=== PATIENT | female | born 1935 ===

== ENCOUNTER → 2017-08-15 | Outpatient (CLI) | payer BC ==
[~2017-08-15] MED LIST: ASPI400T11 PO; CALCTAB5 PO; MULTTAB5 PO; SODI2SOL OPL
== END | disposition home or self-care (01) ==
LOC: C.LABSPEC 11:07
PROVIDERS: ATTEND Ophthalmology
DX: H16.042 Marginal corneal ulcer, left eye (principal)

== ENCOUNTER → 2017-09-30 | Day surgery (SDC) | payer BC ==
[2017-09-09 14:49] VITALS: Ht 152.4 cm; Wt 58.6 kg
[~2017-09-30] VITALS: Ht 152.4 cm; Wt 58.6 kg
[~2017-09-30] MED LIST changes: +ACETAMINOPHEN 325 MG TAB PO PRN; -ASPI400T11 PO; +ATROPINE SULFATE 0.1 MG/ML 5ML SYR IV PRN; +ATROPINE SULFATE 1% OP SOLN 2 ML BTL ONE; +AcetylCHOLine CHL OP SOL 1:100 2 ML BTL ONE; +BRIMONIDINE TART 0.2% OP SOLN PER DROP CHARGE ONE; +BSS 500ML IRRIG ONE; +BSS FLUSH ONE; -CALCTAB5 PO; +CALCTAB7 PO; +EpHEDrine SULFATE INJ 50 MG/ML AMP IV PRN; +EpINEphrine INJ 1MG/ML AMP 1 MG/ML AMP ONE; +HEALON 10MG/ML 0.85 ML SYR INSTIL ONE; +IBUPROFEN 200 MG TAB ONE; +LACTATED RINGER'S 1000ML 1,000 ML IV SCH; +LIDOCAINE 3.5% OPH GEL PER APPLICATION CHARGE OPL SCH; +LIDOCAINE 4% OP SOLN DROP CHARGE ONE; +LIDOCAINE HCL 1% MPF 2 ML VIAL ONE; +MIDAZOLAM HCL 1 MG/ML 2ML VIAL ONE; +MOXIFLOXACIN OPH SOLN PER DROP CHARGE ONE; +MULT-190 PO; +NURSING VERBAL MED ORDER ONE; +POVIDONE-IODINE OP SOLN 30 ML BTL ONE; +PRED1SUS3 OPL; +PROPARACAINE 0.5% OP SOLN PER DROP CHARGE OPL SCH; +TETRACAINE HCL (OPHTH) 60 DROPS/4 ML BTL OP ONE; +TOBRAMYCIN/DEXAMETHASONE OPH OINT PER APPLN CHARGE ONE; +VNTHFA/IN INH
--- NOTE | 2017-09-30 07:35 | History & Physical Bridge - [place] ---
H&P Re-Evaluation Bridge Note: I have examined the patient, reviewed the History & Physical and in the interval since the performance of the History & Physical I have noted the following changes of clinical significance: No changes noted
[2017-09-30] MEDS: MOXIFLOXACIN OPH SOLN PER DROP CHARGE OPL SCH ×3 (07:41→08:02)
[2017-09-30] MEDS: LIDOCAINE 4% OP SOLN DROP CHARGE OPL SCH ×2 (07:42→08:03)
--- NOTE | 2017-09-30 09:35 | [facility] Post Operative Brief Note ---
Immediate Operative Summary Operative Date Sep 30, 2017. Pre-Operative Diagnosis Left Eye Corneal Transplant Rejection Post-Operative Diagnosis Same Procedure(s) Performed Left Eye Descements Stripping Automated Endothelial Keratoplasty Surgeon Dr. Domingo Boone [employer] Detective Surgeon(s) None Estimated Blood Loss 0 Findings Consistent with Post-Op Diagnosis Fluids (cc crystalloids) see anesthesia record Specimens None Drains None Anesthesia Type MAC Complication(s) none Disposition Accompanied Pt To Recover: no Disposition: Recovery Room / PACU
[2017-09-30 09:36] VITALS: TEMP 36.4
--- NOTE | 2017-09-30 09:37 | Discharge Instructions-[facility]urgCtr ---
Discharge Instructions Date of Service Sep 30, 2017. Visit Reason for Visit: Left Eye Corneal Transplant Rejection Discharge Discharge Diagnosis / Problem: fialed DSAEK graft OS post rejection Discharge Goals Goal(s): Improve function Activity Recommendations Activity Limitations: per Instructions/Follow-up section Lifting Limitations: no more than 5 pounds Anesthesia . Post Anesthesia Instructions: If you have had General Anesthesia or IV Sedation: * Do not drive today. * Resume driving when surgeon permits. * Do not make important decisions or sign legal documents today. * Call surgeon for: 1. Temperature elevations greater than 101 degrees F. 2. Uncontrollable pain. 3. Excessive bleeding. 4. Persistent nausea and vomiting. 5. Medication intolerance (nausea, vomiting or rash). * For nausea and vomiting use only clear liquids such as: tea, soda, bouillon until nausea subsides, then gradually increase diet as tolerated. * If you have any concerns or questions, call your surgeon's office. If physician is unavailable and it is an emergency, call 911 or go to the nearest emergency room. . Instructions / Follow-Up Instructions / Follow-Up ACTIVITY RECOMMENDATIONS: * Bedrest: Eyes to the adalgisa. MEDICATIONS: Resume previous medications unless instructed otherwise by your surgeon. Eye drops (today and tomorrow): Gatifloxacin - one drop in operative eye every 2 hours while awake Prednisolone 1% - one drop in operative eye every 2 hours while awake SPECIAL CARE INSTRUCTIONS: * If any problems or concerns, please call Dr. Boone's office at . * Keep plastic shield taped over eye to sleep at night. * Keep plastic shield taped over eye except to administer eye drops. * Keep plastic shield on until office visit the following day. FOLLOW UP VISIT: Follow-up with Dr. Boone in the [place] office as scheduled. If not already scheduled, please call the office at . Diet Recommendations Home Diet: resume previous diet Procedures Procedures Performed: Left Eye Descements Stripping Automated Endothelial Keratoplasty Pending Studies Studies pending at discharge: yes List of pending studies: donor corneal rim culture Medical Emergencies . Who to Call and When: Medical Emergencies: If at any time you feel your situation is an emergency, please call 911 immediately. . Non-Emergent Contact Non-Emergency issues call your: Third Officer . . "Provider Documentation" section prepared by Mathieu Boone. .
--- NOTE | 2017-09-30 10:30 | OPERATIVE REPORT ---
DATE OF OPERATION: 09/30/2017 PREOPERATIVE DIAGNOSIS: Failed corneal graft left eye post-rejection. POSTOPERATIVE DIAGNOSIS: Same. PROCEDURE PERFORMED: Descemet stripping automated endothelial keratoplasty, left eye. COMPLICATIONS: None. ESTIMATED BLOOD LOSS: None. ANESTHESIA: Local with sedation. DESCRIPTION OF PROCEDURE: After informed consent was obtained in the holding area, attention was first turned to the donor cornea. It was placed endothelial side up on a Allison trephine and trephinated by myself using an 8.25 mm Allison trephine blade. It was then covered in Optisol and set aside. The patient was then brought back to the operating room where cardiac monitoring leads and oxygen by nasal cannula was administered by anesthesia. Gentle IV sedation was given, and the patient's left eye was prepped and draped in usual sterile fashion. Wire lid speculum was placed in the left eye and the operating microscope was swung into position. Using 0.12 forceps and a supersharp blade, a paracentesis port was made at the 5 o'clock position of the patient's left eye. 1% nonpreserved lidocaine was injected into the anterior chamber for anesthesia. A 2.2 mm keratome blade was then used to cut the suture present at the 3 o'clock position of the patient's left eye and the suture was removed using a tying forcep. The anterior chamber of the eye was then entered with a 2.2 mm keratome blade in a shelved fashion at the 3 o'clock position of the patient's left eye. The anterior chamber was filled with Healon and the reversed Sinskey hook was used to strip the previous DSAEK graft out of the eye. The irrigation-aspiration handpiece was then used to remove the viscoelastic material from the eye. The main incision was then marked and enlarged to 4 mm. Miochol was injected into the anterior chamber. The donor cornea was then placed endothelial side up on the EndoSerter and a drop of Healon was placed on it, and it was then retracted into the EndoSerter. The EndoSerter was then used to inject the corneal graft through the primary incision into the anterior chamber. It was unfolded underneath BSS and air. Single 10-0 nylon suture was placed through the main incision. Complete air-fill of the eye was achieved and held for 15 minutes during which time the cornea was coated in Amvisc. After the 15 minutes, the Amvisc was rinsed from the cornea and the interface was milked using a Fortunato LASIK roller. Three drops of atropine were then placed on the eye at that time. Cornea was then recoated in Amvisc and another 10 minutes elapsed. After the second 10 minutes, the eye was rinsed again and a partial air-fluid exchange was done, leaving behind a 75% air-fill of the left anterior chamber. ReSure sealant was placed over the primary incision as well as the paracentesis. The wire lid speculum was removed from the eye. Vigamox and TobraDex ointment were placed on the eye and the eye was shielded. The patient tolerated the procedure well and was wheeled to recovery area, to lay flat for an hour prior to being discharged. She tolerated the procedure. I attest to the content of the Intraoperative Record and any orders documented therein. Any exceptions are noted below. MARGARETH
[2017-09-30 10:40] VITALS: BP 135/85; PULSE 60; O2SAT 94
--- NOTE | 2017-09-30 10:45 | Anesthesia Progress Nt - [facility] ---
Anesthesia Post Op Note Date & Time Sep 30, 2017 at 10:45 Vital Signs Pain Intensity: 3.0 Vital Signs Past 12 Hours Date Time Temp Pulse Resp B/P (MAP) Pulse Ox O2 Delivery O2 Flow Rate FiO2 09/30/17 10:10 60 16 169/75 (106) 94 Room Air 09/30/17 09:36 36.4 63 20 180/86 (117) 95 Room Air 09/30/17 07:33 36.5 74 16 195/77 (116) 94 Room Air Notes Mental Status: alert / awake / arousable, participated in evaluation Pt Amnestic to Procedure: Yes Nausea / Vomiting: adequately controlled Pain: adequately controlled Airway Patency, RR, SpO2: stable & adequate BP & HR: stable & adequate Hydration State: stable & adequate Anesthetic Complications: no major complications apparent
== END | disposition home or self-care (01) ==
LOC: X.SURG 07:17
PROVIDERS: ATTEND Ophthalmology
DX: T86.841 Corneal transplant failure (principal); F17.200 Nicotine dependence, unspecified, uncomplicated; Y83.1 Surgical operation with implant of artificial internal device as the cause of abnormal reaction of the patient, or of later complication, without mention of misadventure at the time of the procedure; Z98.41 Cataract extraction status, right eye; Z98.42 Cataract extraction status, left eye; Z98.890 Other specified postprocedural states